=== PATIENT | female | born 1945 ===

== ENCOUNTER 2020-08-13 18:48 | Inpatient (IN) ==
[2020-08-13] MEDS ORDERED: fentaNYL 100 mcg/2 ml 50 MCG/ML VIAL ONE (19:04)
[2020-08-13] MEDS ORDERED: Midazolam 5 mg/5 ml VIAL 1 mg/ml 5 ml VIAL (5 mg) ONE (19:04)
[2020-08-13] MEDS ORDERED: Ondansetron 4 mg VIAL 2 MG/ML 2 ml VIAL ONE (19:06)
[2020-08-13] MEDS ORDERED: Bivalirudin 250 MG VIAL ONE (19:25)
[2020-08-13 19:32] LABS: ALT 23 U/L (7-52); AST 27 U/L (13-39); Albumin 3.7 g/dL (3.2-5.2); Albumin/Globulin Ratio 1.7 (1-3); Alkaline Phosphatase 38 U/L (34-104); Anion Gap 9 mmol/L (2-11); Blood Urea Nitrogen 37 mg/dL (6-24); CO2 Carbon Dioxide 23 mmol/L (22-32); Calcium 9.1 mg/dL (8.6-10.3); Chloride 106 mmol/L (101-111); Creatine Kinase 114 U/L (10-223); EGFR African American 44.6 (>60); EGFR Non-African American 36.9 (>60); Globulin 2.2 g/dL (2-4); Glucose 215 mg/dL (70-100); LDL Cholesterol Direct 151 mg/dL; Potassium 4.1 mmol/L (3.5-5.0); Sodium 138 mmol/L (135-145); Total Protein 5.9 g/dL (6.4-8.9)
[2020-08-13 19:33] LABS: INR 1.07 (0.82-1.09)
[2020-08-13 19:35] LABS: CKMB ng/mL 11.9 ng/mL (0.6-6.3)
[2020-08-13 19:37] LABS: Activated Partial Thrombo Time 174.6 seconds (26.0-38.0)
[2020-08-13 19:39] LABS: Troponin I 1.07 ng/mL (<0.03)
[2020-08-13 19:46] LABS: ABS Lymphocytes 1.9 10^3/ul (1.0-4.8); ABS Monocytes 1.1 10^3/ul (0-0.8); ABS Neutrophils 11.8 10^3/ul (1.5-7.7); Eosinophil % 0.1 %; Hematocrit 37 % (35-47); Hemoglobin 12.7 g/dL (12.0-16.0); Lymphocyte % 12.6 %; Mean Corpuscular HGB Conc 34 g/dL (31-36); Mean Corpuscular Hemoglobin 32 pg (27-31); Mean Corpuscular Volume 92 fL (80-97); Mean Platelet Volume 8.5 fL (7.4-10.4); Nucleated Red Blood Cells % 0.1; Platelet Count 307 10^3/uL (150-450); Red Blood Count 4.03 10^6 /uL (3.70-4.87); Red Cell Distribution Width 13 % (10-15); White Blood Count 14.9 10^3/uL (3.5-10.8)
[2020-08-13] MEDS ORDERED: Heparin 1,000 UNIT/ML 10 ml (10,000 UNITS) CATHLAB/DIALYSIS ONE (20:12)
[2020-08-13] MEDS ORDERED: VERAPAMIL 2.5 MG/ML 2 ML VIAL ** 5 mg/2 ml ONE (20:12)
[2020-08-13] MEDS ORDERED: Iodixanol 320 (CONTRAST) 100 ML SDV ONE (20:12)
[2020-08-13] MEDS ORDERED: Lidocaine 1% VIAL 10 MG/ML VIAL ONE (20:13)
[2020-08-13] MEDS ORDERED: Heparin 2 UNITS/ML 1000 mls 2,000 ML IV ONE (20:13)
[2020-08-13] MEDS ORDERED: nitroGLYCERIN DRIP 25,000 MCG/250 ML BTL ONE (20:13)
[2020-08-13] MEDS ORDERED: Iohexol 350 (CONTRAST) 200 ML MDV IV ONE (20:14)
[2020-08-13] MEDS ORDERED: Ondansetron 4 mg VIAL 2 MG/ML 2 ml VIAL IV ONE (20:56)
[2020-08-13] MEDS: NS 0.9% 1000 ml BAG 1,000 ML IV SCH (21:10)
[2020-08-13 22:06] LABS: Troponin I 4.11 ng/mL (<0.03)
[2020-08-14 03:58] LABS: ABS Lymphocytes 1.3 10^3/ul (1.0-4.8); ABS Monocytes 1.1 10^3/ul (0-0.8); ABS Neutrophils 13.6 10^3/ul (1.5-7.7); Hematocrit 37 % (35-47); Lymphocyte % 8.3 %; Mean Corpuscular HGB Conc 33 g/dL (31-36); Mean Corpuscular Hemoglobin 30 pg (27-31); Mean Corpuscular Volume 93 fL (80-97); Mean Platelet Volume 8.6 fL (7.4-10.4); Platelet Count 343 10^3/uL (150-450); Red Blood Count 3.96 10^6 /uL (3.70-4.87); Red Cell Distribution Width 14 % (10-15); White Blood Count 16.1 10^3/uL (3.5-10.8)
[2020-08-14 04:14] LABS: Anion Gap 8 mmol/L (2-11); Blood Urea Nitrogen 34 mg/dL (6-24); CO2 Carbon Dioxide 24 mmol/L (22-32); Calcium 8.7 mg/dL (8.6-10.3); Chloride 106 mmol/L (101-111); Cholesterol 236 mg/dL; EGFR African American 50.4 (>60); EGFR Non-African American 41.7 (>60); Glucose 199 mg/dL (70-100); HDL Cholesterol 68.9 mg/dL; LDL Cholesterol 133 mg/dL; Magnesium 1.7 mg/dL (1.9-2.7); Potassium 4.2 mmol/L (3.5-5.0); Sodium 138 mmol/L (135-145); Triglycerides 171 mg/dL
[2020-08-14] MEDS ORDERED: Magnesium Sulfate IV 3 GM in NS 0.9% 100 ml BAG 100 ML IVPB ONE (04:28)
[2020-08-14] MEDS ORDERED: Calcium Carb (TUMS) 500 mg CHEW TAB PO ONE (04:28)
[2020-08-14] MEDS: Ondansetron 4 mg VIAL 2 MG/ML 2 ml VIAL IV PRN ×3 (05:03→20:54)
[2020-08-14] MEDS: NS 0.9% 1000 ml BAG 1,000 ML IV SCH (05:49)
[2020-08-14 07:56] LABS: Troponin I 24.27 ng/mL (<0.03)
[2020-08-14] MEDS: Enoxaparin 40 MG/0.4 ML SYR SUBCUT SCH (10:35)
[2020-08-14 10:39] LABS: Amylase 27 U/L (29-103); Lipase 19 U/L (11.0-82.0)
[2020-08-14 11:11] LABS: Troponin I 32.63 ng/mL (<0.03)
[2020-08-14 15:22] LABS: Troponin I 36.71 ng/mL (<0.03)
[2020-08-15 05:19] LABS: ABS Basophils 0.1 10^3/ul (0-0.2); ABS Lymphocytes 1.1 10^3/ul (1.0-4.8); ABS Monocytes 1.5 10^3/ul (0-0.8); ABS Neutrophils 12.8 10^3/ul (1.5-7.7); Eosinophil % 0.1 %; Hematocrit 34 % (35-47); Hemoglobin 11.8 g/dL (12.0-16.0); Lymphocyte % 7.3 %; Mean Corpuscular HGB Conc 35 g/dL (31-36); Mean Corpuscular Hemoglobin 31 pg (27-31); Mean Corpuscular Volume 90 fL (80-97); Mean Platelet Volume 8.2 fL (7.4-10.4); Platelet Count 298 10^3/uL (150-450); Red Blood Count 3.79 10^6 /uL (3.70-4.87); Red Cell Distribution Width 14 % (10-15); White Blood Count 15.5 10^3/uL (3.5-10.8)
[2020-08-15 05:36] LABS: Anion Gap 7 mmol/L (2-11); Blood Urea Nitrogen 19 mg/dL (6-24); CO2 Carbon Dioxide 24 mmol/L (22-32); Calcium 8.7 mg/dL (8.6-10.3); Chloride 105 mmol/L (101-111); EGFR African American 70.9 (>60); EGFR Non-African American 58.6 (>60); Glucose 188 mg/dL (70-100); Potassium 4.1 mmol/L (3.5-5.0); Sodium 136 mmol/L (135-145)
[2020-08-15] MEDS ORDERED: Isosorbide Mononit ER 30mg TAB PO SCH (09:00)
[2020-08-15 09:56] LABS: Troponin I 25.45 ng/mL (<0.03)
[2020-08-15] MEDS: Enoxaparin 40 MG/0.4 ML SYR SUBCUT SCH (11:55)
[2020-08-16 08:19] LABS: Calcium 8.9 mg/dL (8.6-10.3); EGFR African American 75.6 (>60); EGFR Non-African American 62.5 (>60); Magnesium 1.8 mg/dL (1.9-2.7)
[2020-08-16] MEDS ORDERED: Magnesium Sulfate 2 gm BAG 2 GM/50 ML BAG IVPB ONE (09:27)
[2020-08-16] MEDS: Metoprolol Tartrate 5 mg VIAL 5 ml VIAL (1 mg/ml) IV PRN ×2 (09:41→09:59)
[2020-08-16] MEDS: Amiodarone 400 mg TAB PO SCH ×3 (10:33→20:55)
[2020-08-16 11:12] LABS: Troponin I 14.59 ng/mL (<0.03)
[2020-08-16 11:25] LABS: TSH Ultra Thyroid Stim Horm 3.09 mcIU/mL (0.34-5.60)
[2020-08-16 11:27] LABS: Free T3 2.8 pg/mL (2.5-3.9); Free T4 1.28 ng/dL (0.61-1.12)
[2020-08-16] MEDS ORDERED: Amiodarone 400 mg TAB PO SCH (21:00)
[2020-08-17 05:34] LABS: Calcium 8.8 mg/dL (8.6-10.3); EGFR African American 71.8 (>60); EGFR Non-African American 59.4 (>60); Magnesium 2.1 mg/dL (1.9-2.7); Potassium 4.1 mmol/L (3.5-5.0)
[2020-08-17] MEDS: Amiodarone 400 mg TAB PO SCH ×2 (09:11→21:22)
[2020-08-18] MEDS: Amiodarone 400 mg TAB PO SCH (08:12)
[2020-08-18 15:19] VITALS: BP 110/69
== END 2020-08-18 16:00 | disposition home or self-care (01) ==
LOC: ED 18:48 → CHICATH 19:03 → ICU 20:54 → MEDTELE 08-15 19:58
PROVIDERS: ATTEND Internal Medicine

== ENCOUNTER 2023-01-07 23:56 | Inpatient (IN) ==
[2023-01-08] MEDS ORDERED: Ondansetron 4 mg VIAL 2 MG/ML 2 ml VIAL IV PRN (01:39)
[2023-01-08] MEDS ORDERED: Albuterol HFA INHALER 8 gm MDI INH PRN (01:58)
[2023-01-08] MEDS ORDERED: Enoxaparin 40 MG/0.4 ML SYR SUBCUT SCH (02:00)
[2023-01-08] MEDS ORDERED: Dulaglutide (NF) 0.75 MG/0.5 ML SYRINGE SUBCUT SCH (02:00)
[2023-01-08] MEDS ORDERED: Lactated Ringers 1000 ml BAG 1,000 ML IV SCH (04:00)
[2023-01-08] MEDS ORDERED: Meropenem 1 GM PREMIX(*) 1 GM/50 ML BAG IV SCH (04:00)
[2023-01-08 04:18] LABS: ABS Eosinophils 0.3 10^3/uL (0.0-0.5); ABS Lymphocytes 1.9 10^3/uL (1.0-4.8); ABS Monocytes 0.7 10^3/uL (0.0-0.9); ABS Neutrophils 4.9 10^3/uL (1.5-7.6); Eosinophil % 3.4 %; Hematocrit 38.4 % (35-45); Hemoglobin 13.5 g/dL (11.5-14.3); Lymphocyte % 24.5 %; Mean Corpuscular Hemoglobin 30.3 pg (27-33); Mean Corpuscular Volume 86.6 fL (80-97); Mean Platelet Volume 8.3 fL (7.5-11.2); Nucleated Red Blood Cells % 0.1 /100 WBC (0.0-0.4); Platelet Count 215 10^3/uL (150-450); Red Blood Count 4.43 10^6/uL (3.63-4.92); Red Cell Distribution Width 13.9 % (12-17); White Blood Count 7.9 10^3/uL (3.8-11.8)
[2023-01-08 04:25] LABS: Activated Partial Thrombo Time 31.7 seconds (26.0-38.0)
[2023-01-08 04:36] LABS: C Reactive Protein 1.36 mg/L (<8.01); Calcium 9.7 mg/dL (8.6-10.3); Creatinine, Serum 1.02 mg/dL (0.51-0.95); Magnesium 1.8 mg/dL (1.9-2.7); Potassium 3.7 mmol/L (3.5-5.0); eGFR CKD-EPI 56.3 (>60)
[2023-01-08] MEDS: NF: RIMEGEPANT SULFATE 75 MG ODT TAB (NF) PO SCH ×2 (07:41→09:40)
[2023-01-08] MEDS ORDERED: Magnesium Sulfate 2 gm BAG 2 GM/50 ML BAG IVPB ONE (07:57)
[2023-01-08 09:03] LABS: INR 1.1 (0.83-1.13)
[2023-01-08] MEDS ORDERED: cefTRIAXone 1 gm/50 mL D5W 1 GM/50 ML BAG IV SCH (12:00)
[2023-01-08] MEDS: Lactated Ringers 1000 ml BAG 1,000 ML IV SCH (15:00)
[2023-01-08] MEDS ORDERED: fentaNYL 100 mcg/2 ml 50 MCG/ML VIAL ONE (15:54)
[2023-01-08] MEDS ORDERED: RIMEGEPANT SULFATE 75 MG ODT TAB (NF) PO SCH (19:04)
[2023-01-09] MEDS: Lactated Ringers 1000 ml BAG 1,000 ML IV SCH ×3 (00:59→17:33)
[2023-01-09] MEDS ORDERED: RIMEGEPANT SULFATE 75 MG ODT TAB (NF) PO SCH (05:00)
[2023-01-09 07:12] LABS: ABS Eosinophils 0.3 10^3/uL (0.0-0.5); ABS Lymphocytes 1.8 10^3/uL (1.0-4.8); ABS Monocytes 0.6 10^3/uL (0.0-0.9); ABS Neutrophils 4.5 10^3/uL (1.5-7.6); ABS Nucleated RBC 0.01 10^3/ul; Eosinophil % 4.2 %; Hematocrit 40.8 % (35-45); Hemoglobin 14.4 g/dL (11.5-14.3); Lymphocyte % 25.1 %; Mean Corpuscular Hemoglobin 30.8 pg (27-33); Mean Corpuscular Hgb Conc 35.4 g/dL (31-36); Mean Corpuscular Volume 87.1 fL (80-97); Mean Platelet Volume 8.3 fL (7.5-11.2); Nucleated Red Blood Cells % 0.1 /100 WBC (0.0-0.4); Platelet Count 255 10^3/uL (150-450); Red Blood Count 4.68 10^6/uL (3.63-4.92); White Blood Count 7.2 10^3/uL (3.8-11.8)
[2023-01-09 07:29] LABS: Calcium 9.6 mg/dL (8.6-10.3); Creatinine, Serum 0.92 mg/dL (0.51-0.95); Potassium 4.3 mmol/L (3.5-5.0); eGFR CKD-EPI 63.7 (>60)
[2023-01-09] MEDS ORDERED: cefTRIAXone 1 gm/50 mL D5W 1 GM/50 ML BAG IV SCH (14:00)
[2023-01-09] MEDS ORDERED: Enoxaparin 40 MG/0.4 ML SYR SUBCUT SCH (17:00)
[2023-01-10 06:48] LABS: ABS Basophils 0.1 10^3/uL (0.0-0.1); ABS Eosinophils 0.4 10^3/uL (0.0-0.5); ABS Lymphocytes 1.9 10^3/uL (1.0-4.8); ABS Monocytes 0.6 10^3/uL (0.0-0.9); ABS Neutrophils 3.1 10^3/uL (1.5-7.6); Eosinophil % 5.8 %; Hematocrit 37.7 % (35-45); Hemoglobin 13.1 g/dL (11.5-14.3); Lymphocyte % 31.7 %; Mean Corpuscular Hemoglobin 30.1 pg (27-33); Mean Corpuscular Hgb Conc 34.7 g/dL (31-36); Mean Corpuscular Volume 86.8 fL (80-97); Mean Platelet Volume 8.4 fL (7.5-11.2); Nucleated Red Blood Cells % 0.1 /100 WBC (0.0-0.4); Platelet Count 224 10^3/uL (150-450); Red Blood Count 4.34 10^6/uL (3.63-4.92); White Blood Count 6.1 10^3/uL (3.8-11.8)
[2023-01-10 07:20] LABS: Calcium 8.9 mg/dL (8.6-10.3); Creatinine, Serum 0.93 mg/dL (0.51-0.95); Magnesium 1.9 mg/dL (1.9-2.7); Potassium 4.2 mmol/L (3.5-5.0); eGFR CKD-EPI 62.9 (>60)
[2023-01-10 14:32] VITALS: BP 142/89
== END 2023-01-10 14:30 | disposition home or self-care (01) | DRG 373 ==
LOC: ED 23:56 → EDHOLD 23:56 → SUATTDRO 01-08 01:39 → MEDTELE 01-08 17:18
PROVIDERS: ADMIT Internal Medicine; ATTEND Internal Medicine

== ENCOUNTER 2023-11-02 05:38 | Observation (INO) ==
[~2023-11-02 05:38] MED LIST: Naloxone 0.4 mg VIAL 0.4 mg/ml 1 ml VIAL IV PRN; Ondansetron 4 mg VIAL 2 MG/ML 2 ml VIAL IV PRN; fentaNYL 100 mcg/2 ml 50 MCG/ML VIAL IV PRN
[2023-11-02] MEDS ORDERED: Clindamycin 900 MG/50 **NS BAG 900 MG/50 ML BAG ONE (06:14)
[2023-11-02] MEDS ORDERED: Tranexamic Acid 1 GM/100ML BAG 2,000 MG/200 ML BAG IV ONE (06:14)
[2023-11-02] MEDS: Lactated Ringers 1000 ml BAG 1,000 ML IV SCH ×3 (06:37→12:57)
[2023-11-02] MEDS ORDERED: Lidocaine 2% PF 5 ML VIAL ONE ×2 (06:50→08:21)
[2023-11-02] MEDS ORDERED: Sevoflurane BOTTLE ONE (06:50)
[2023-11-02] MEDS ORDERED: Midazolam 2 mg/2 ml VIAL 1 mg/ml 2 ml VIAL (2 mg) ONE ×2 (06:50→09:15)
[2023-11-02] MEDS ORDERED: Phenylephrine IV 10 MG/ML 1 ml VIAL ONE (06:50)
[2023-11-02] MEDS ORDERED: fentaNYL 100 mcg/2 ml 50 MCG/ML VIAL ONE ×2 (06:50→07:35)
[2023-11-02 06:55] LABS: Rapid COVID-19 Molecular Undetected (Undetected)
[2023-11-02] MEDS ORDERED: Bupivacaine 0.25% SDV 30 ML ONE (07:29)
[2023-11-02] MEDS ORDERED: Dexamethasone IV 4 MG/ML VIAL 1 ml VIAL ONE (07:51)
[2023-11-02] MEDS ORDERED: Ondansetron 4 mg VIAL 2 MG/ML 2 ml VIAL ONE (08:33)
[2023-11-02] MEDS ORDERED: Ondansetron 4 mg VIAL 2 MG/ML 2 ml VIAL IV PRN (10:23)
[2023-11-02] MEDS ORDERED: Lactulose 30 ml UDC PO PRN (10:23)
[2023-11-02] MEDS ORDERED: Magnesium Hydroxide LIQ 30 ML UDC PO PRN (10:23)
[2023-11-02] MEDS ORDERED: Calcium Carb (TUMS) 500 mg CHEW TAB PO PRN (10:23)
[2023-11-02] MEDS ORDERED: Morphine 2 MG/ML SYRINGE IV PRN (10:23)
[2023-11-02] MEDS ORDERED: Ondansetron ODT 4 mg TAB 4 MG TAB PO PRN (10:23)
[2023-11-02 12:24] LABS: Hepatitis C Antibody Negative (Negative)
[2023-11-02] MEDS: BUPIVACAINE **LIPOSOME/PF 13.3 MG/ML (266MG/ 20ML) VIAL (RESTRICTED) INFIL ONE (12:57)
[2023-11-02] MEDS: Buffered Lidocaine 1% SYRIN 1 ml INTRADERM ONE (12:57)
[2023-11-02] MEDS ORDERED: Albuterol HFA INHALER 8 gm MDI INH PRN (13:36)
[2023-11-02] MEDS: Clindamycin 900 MG/D5W BAG 900 MG/50 ML BAG IVPB SCH (16:12)
[2023-11-02] MEDS: Magnesium Hydroxide LIQ 30 ML UDC PO SCH (20:31)
[2023-11-03 07:30] LABS: Anion Gap 13 mmol/L (2-16); Blood Urea Nitrogen 16 mg/dL (6-24); CO2 Carbon Dioxide 19 mmol/L (22-32); Calcium 9.5 mg/dL (8.6-10.3); Chloride 104 mmol/L (101-111); Creatinine, Serum 0.93 mg/dL (0.51-0.95); Glucose 147 mg/dL (70-100); Sodium 136 mmol/L (135-145); eGFR CKD-EPI 62.5 (>60)
[2023-11-03 08:28] LABS: Hematocrit 35.9 % (35-45); Hemoglobin 12.4 g/dL (11.5-14.3); Mean Platelet Volume 8.5 fL (7.5-11.2); Platelet Count 215 10^3/uL (150-450)
[2023-11-03] MEDS: Vitamin THERAPEUTIC TAB PO SCH (08:34)
[2023-11-03 11:04] VITALS: BP 123/68
[2023-11-03] MEDS ORDERED: Aspirin EC 81 mg TAB.EC (enteric coated) PO SCH (21:00)
== END 2023-11-03 13:50 | disposition home or self-care (01) ==
LOC: SSU 05:38 → OR 05:38
PROVIDERS: ADMIT Orthopaedic Surgery Sports Medicine; ATTEND Orthopaedic Surgery Sports Medicine